=== PATIENT | female | born 1980 | race Caucasian/White ===

== ENCOUNTER 2018-02-14 09:36 | Emergency (ER) | payer BC ==
[2018-02-14 09:50] VITALS: BP 135/82
--- NOTE | 2018-02-14 09:57 | ER Document Report ---
ED Medical Screen (RME) - General Chief Complaint: Abdominal Pain Stated Complaint: ABDOMINAL PAIN Time Seen by Provider: 02/14/18 09:52 Mode of Arrival: Ambulatory Information source: Patient TRAVEL OUTSIDE OF THE [place] IN LAST 30 DAYS: No - HPI Patient complains to provider of: abd pain Onset: Yesterday - pt with onset of LLQ abd. pain starting yesterday and continuing into today. - Related Data Allergies/Adverse Reactions: azithromycin [From Zithromax] Allergy (Verified 02/14/18 09:37) Penicillins Allergy (Verified 02/14/18 09:37) Sulfa (Sulfonamide Antibiotics) Allergy (Verified 02/14/18 09:37) Past Medical History - Social History Chew tobacco use (# tins/day): No Frequency of alcohol use: None Drug Abuse: None Renal/ Medical History: Denies: Hx Peritoneal Dialysis Physical Exam - Vital signs Vitals: Temp Pulse Resp BP Pulse Ox 97.9 F 108 H 18 135/82 H 97 02/14/18 09:48 02/14/18 09:48 02/14/18 09:48 02/14/18 09:48 02/14/18 09:48 Course - Vital Signs Vital signs: Temp Pulse Resp BP Pulse Ox 97.9 F 108 H 18 135/82 H 97 02/14/18 09:48 02/14/18 09:48 02/14/18 09:48 02/14/18 09:48 02/14/18 09:48 Doctor's Discharge - Discharge Referrals: SANTANA BECKHAM DO [Primary Care Provider] - Follow up as needed
[2018-02-14 10:41] LABS: ABSOLUTE BASOPHILS # (AUTO) 0.1 10^3/uL (0.0-0.2); ABSOLUTE EOSINOPHILS # (AUTO) 0.2 10^3/uL (0.0-0.6); ABSOLUTE LYMPHOCYTES (AUTO) 1.9 10^3/uL (0.5-4.7); ABSOLUTE MONOCYTES (AUTO) 0.7 10^3/uL (0.1-1.4); ABSOLUTE NEUT (AUTO) 6.2 10^3/uL (1.7-8.2); BASOPHILS % (AUTO) 0.7 % (0-2); HEMATOCRIT 41.3 % (36.0-47.0); HEMOGLOBIN 14.1 g/dL (12.0-15.5); LYMPHOCYTES % (AUTO) 20.5 % (13-45); MEAN CORPUSCULAR HEMOGLOBIN 29.7 pg (27.0-33.4); MEAN CORPUSCULAR HGB CONC 34.2 g/dL (32.0-36.0); MEAN CORPUSCULAR VOLUME 87 fl (80-97); PLATELET COUNT 279 10^3/uL (150-450); RED BLOOD COUNT 4.75 10^6/uL (3.72-5.28); RED CELL DISTRIBUTION WIDTH 13.8 % (11.5-14.0); SEGMENTED NEUTROPHILS % (AUTO) 68.8 % (42-78); TOTAL CELLS COUNTED % (AUTO) 100 %
--- NOTE | 2018-02-14 10:55 | ER Document Report ---
ED GI/ - General Chief Complaint: Abdominal Pain Stated Complaint: ABDOMINAL PAIN Time Seen by Provider: 02/14/18 09:52 Mode of Arrival: Ambulatory Information source: Patient Notes: Patient presents complaining of left lower pelvic pain just started yesterday. Patient denies any fever, nausea vomiting or diarrhea. Patient denies any urinary symptoms. Patient denies any concerns about sexually transmitted infection TRAVEL OUTSIDE OF THE [place] IN LAST 30 DAYS: No - HPI Patient complains to provider of: Pelvic pain Onset: Yesterday Timing/Duration: Persistent Pain Level: 1 Location: Pelvis Vaginal bleeding (Compared to normal period): None Sexual history: Active Associated symptoms: denies: Diarrhea, Dysuria, Fever, Nausea, Urinary hesitancy , Urinary frequency, Urinary retention, Urinary urgency, Vaginal discharge Exacerbated by: Movement Relieved by: Denies Similar symptoms previously: No Recently seen / treated by doctor: Yes - Related Data Allergies/Adverse Reactions: azithromycin [From Zithromax] Allergy (Verified 02/14/18 09:57) Penicillins Allergy (Verified 02/14/18 09:57) Sulfa (Sulfonamide Antibiotics) Allergy (Verified 02/14/18 09:57) Past Medical History - General Information source: Patient - Social History Smoking Status: Never Smoker Chew tobacco use (# tins/day): No Frequency of alcohol use: None Drug Abuse: None Occupation: [employer] Lives with: Family Family History: Reviewed & Not Pertinent Patient has suicidal ideation: No Patient has homicidal ideation: No Endocrine Medical History: Reports: Hx Hypothyroidism Renal/ Medical History: Denies: Hx Peritoneal Dialysis Psychiatric Medical History: Reports: Hx Anxiety Past Surgical History: Reports: Hx Cholecystectomy Review of Systems - Review of Systems Constitutional: No symptoms reported. denies: Fever, Recent illness EENT: No symptoms reported Cardiovascular: No symptoms reported. denies: Chest pain Respiratory: No symptoms reported. denies: Cough, Short of breath Gastrointestinal: Abdominal pain. denies: Diarrhea, Nausea, Vomiting Genitourinary: No symptoms reported. denies: Dysuria, Flank pain Female Genitourinary: No symptoms reported. denies: Vaginal discharge, Vaginal bleeding Musculoskeletal: Back pain Skin: No symptoms reported Hematologic/Lymphatic: No symptoms reported Neurological/Psychological: No symptoms reported Physical Exam - Vital signs Vitals: Temp Pulse Resp BP Pulse Ox 97.9 F 108 H 18 135/82 H 97 02/14/18 09:48 02/14/18 09:48 02/14/18 09:48 02/14/18 09:48 02/14/18 09:48 - General General appearance: Appears well, Alert In distress: None - HEENT Head: Normocephalic, Atraumatic Eyes: Normal Conjunctiva: Normal Ears: Normal Nasal: Normal Mouth/Lips: Normal Neck: Normal, Supple. No: Lymphadenopathy - Respiratory Respiratory status: No respiratory distress Chest status: Nontender Breath sounds: Normal. No: Rales, Rhonchi, Stridor, Wheezing Chest palpation: Normal - Cardiovascular Rhythm: Regular Heart sounds: S1 appreciated, S2 appreciated Murmur: No - Abdominal Inspection: Wounds Distension: No distension Bowel sounds: Normal Tenderness: Tender - LLQ pain Organomegaly: No organomegaly - Genitourinary External exam: Normal Speculum exam: Normal Vaginal bleeding: None Bimanuel exam: Adnexal tenderness - left - Back Back: Tender - Left lower lumbar paraspinal tenderness. No: CVA tenderness, Vertebra tenderness - Extremities General upper extremity: Normal inspection, Nontender, Normal ROM General lower extremity: Normal inspection, Nontender, Normal ROM - Neurological Neuro grossly intact: Yes Cognition: Normal Jose Coma Scale Eye Opening: Spontaneous [place] Coma Scale Verbal: Oriented Jose Coma Scale Motor: Obeys Commands Jose Coma Scale Total: 15 - Psychological Associated symptoms: Normal affect, Normal mood - Skin Skin Temperature: Warm Skin Moisture: Dry Skin Color: Normal Course - Re-evaluation Re-evalutation: 02/14/18 13:34 Patient continues with mild left lower pelvic tenderness. No fever, no leukocytosis. Normal urinalysis. Patient presents with abdominal pain without signs of peritonitis or other life-threatening or serious etiology. Patient appears stable for discharge and has been instructed to return immediately if the symptoms worsen in any way, or in 8-12 hours if not improved for reevaluation. The patient has been instructed to return if the symptoms worsen or change in any way. - Vital Signs Vital signs: Temp Pulse Resp BP Pulse Ox 97.9 F 108 H 18 135/82 H 97 02/14/18 09:48 02/14/18 09:48 02/14/18 09:48 02/14/18 09:48 02/14/18 09:48 - Laboratory Result Diagrams: 02/14/18 09:48 02/14/18 09:48 Laboratory results interpreted by me: Labs- Entire Visit 02/14/18 02/14/18 02/14/18 09:48 09:48 09:48 WBC 9.0 RBC 4.75 Hgb 14.1 Hct 41.3 MCV 87 MCH 29.7 MCHC 34.2 RDW 13.8 Plt Count 279 Seg Neutrophils % 68.8 Lymphocytes % 20.5 Monocytes % 8.0 Eosinophils % 2.0 Basophils % 0.7 Absolute Neutrophils 6.2 Absolute Lymphocytes 1.9 Absolute Monocytes 0.7 Absolute Eosinophils 0.2 Absolute Basophils 0.1 Sodium 143.4 Potassium 4.5 Chloride 106 Carbon Dioxide 25 Anion Gap 12 BUN 11 Creatinine 0.69 Est GFR ( Amer) > 60 Est GFR (Non-Af Amer) > 60 Glucose 89 Calcium 9.9 Total Bilirubin 0.4 Direct Bilirubin 0.2 Neonat Total Bilirubin Not Reportable Neonat Direct Bilirubin Not Reportable Neonat Indirect Bili Not Reportable AST 14 ALT 21 Alkaline Phosphatase 70 Total Protein 7.3 Albumin 4.4 Lipase 84.4 Urine Color STRAW Urine Appearance CLEAR Urine pH 6.0 Ur Specific [place] 1.004 Urine Protein NEGATIVE Urine Glucose (UA) NEGATIVE Urine Ketones NEGATIVE Urine Blood NEGATIVE Urine Nitrite NEGATIVE Urine Bilirubin NEGATIVE Urine Urobilinogen NEGATIVE Ur Leukocyte Esterase NEGATIVE Urine WBC (Auto) 0 Urine Bacteria (Auto) TRACE Squamous Epi Cells Auto <1 Urine Mucus (Auto) RARE Urine Ascorbic Acid NEGATIVE Urine HCG, Qual NEGATIVE Trichomonas (Wet Prep) Vaginal WBC Vaginal Yeast Chlamydia DNA (PCR) N.gonorrhoeae DNA (PCR) 02/14/18 02/14/18 11:38 11:38 WBC RBC Hgb Hct MCV MCH MCHC RDW Plt Count Seg Neutrophils % Lymphocytes % Monocytes % Eosinophils % Basophils % Absolute Neutrophils Absolute Lymphocytes Absolute Monocytes Absolute Eosinophils Absolute Basophils Sodium Potassium Chloride Carbon Dioxide Anion Gap BUN Creatinine Est GFR ( Amer) Est GFR (Non-Af Amer) Glucose Calcium Total Bilirubin Direct Bilirubin Neonat Total Bilirubin Neonat Direct Bilirubin Neonat Indirect Bili AST ALT Alkaline Phosphatase Total Protein Albumin Lipase Urine Color Urine Appearance Urine pH Ur Specific [place] Urine Protein Urine Glucose (UA) Urine Ketones Urine Blood Urine Nitrite Urine Bilirubin Urine Urobilinogen Ur Leukocyte Esterase Urine WBC (Auto) Urine Bacteria (Auto) Squamous Epi Cells Auto Urine Mucus (Auto) Urine Ascorbic Acid Urine HCG, Qual Trichomonas (Wet Prep) NO TRICHOMONAS SEEN Vaginal WBC RARE WBCS SEEN Vaginal Yeast NO YEAST SEEN Chlamydia DNA (PCR) NOT DETECTED N.gonorrhoeae DNA (PCR) NOT DETECTED - Diagnostic Test Radiology reviewed: Image reviewed, Reports reviewed Discharge - Discharge Clinical Impression: Abdominal pain Qualifiers: Abdominal location: left lower quadrant Qualified Code(s): R10.32 - Left lower quadrant pain Condition: Stable Disposition: HOME, SELF-CARE Instructions: Abdominal Pain ([facility]), Antispasmodics ([facility]) Additional Instructions: Return immediately for any new or worsening symptoms Followup with your primary care provider, call tomorrow to make a followup appointment Prescriptions: Dicyclomine HCl [Bentyl 20 mg Tablet] 20 mg PO QID PRN #12 tablet PRN Reason: Naproxen [Naprosyn 250 Nmg Tablet] 1 tab PO BID #14 tablet Referrals: SANTANA BECKHAM DO [Primary Care Provider] - 02/16/18
[2018-02-14 10:57] LABS: APPEARANCE,URINE CLEAR; BILIRUBIN,URINE NEGATIVE (NEGATIVE); COLOR,URINE STRAW; GLUCOSE, URINE NEGATIVE (NEGATIVE); KETONES,URINE NEGATIVE (NEGATIVE); LEUKOCYTE ESTERASE,URINE NEGATIVE (NEGATIVE); NITRITE,URINE NEGATIVE (NEGATIVE); PROTEIN,URINE NEGATIVE (NEGATIVE); URINE SPECIFIC GRAVITY 1.004; UROBILINOGEN,URINE NEGATIVE mg/dL (<2.0)
[2018-02-14 10:58] LABS: ALANINE AMINOTRANSFERASE 21 U/L (9-52); ALBUMIN 4.4 g/dL (3.5-5.0); ALKALINE PHOSPHATASE 70 U/L (38-126); ANION GAP 12 (5-19); ASPARTATE AMINO TRANSFERASE 14 U/L (14-36); BILIRUBIN,DIRECT 0.2 mg/dL (0.0-0.4); BILIRUBIN,TOTAL 0.4 mg/dL (0.2-1.3); BLOOD UREA NITROGEN 11 mg/dL (7-20); CALCIUM 9.9 mg/dL (8.4-10.2); CARBON DIOXIDE 25 mmol/L (22-30); CHLORIDE 106 mmol/L (98-107); GLUCOSE 89 mg/dL (75-110); LIPASE 84.4 U/L (23-300); POTASSIUM 4.5 mmol/L (3.6-5.0); SODIUM 143.4 mmol/L (137-145); TOTAL PROTEIN 7.3 g/dL (6.3-8.2)
--- NOTE | 2018-02-14 11:46 | RADIOLOGY REPORT (SQ) ---
EXAM DESCRIPTION: ACUTE ABDOMEN SERIES COMPLETED DATE/TIME: 02/14/2018 11:31 am REASON FOR STUDY: abd pain COMPARISON: None. NUMBER OF VIEWS: Three views. TECHNIQUE: Frontal chest, supine abdomen and upright/decubitus abdomen radiographic images acquired. LIMITATIONS: None. FINDINGS: CHEST: Lungs clear of infiltrates. FREE AIR: None. No abnormal gas collections. BOWEL GAS PATTERN: Nonobstructive pattern. No dilated loops or air fluid levels. CALCIFICATIONS: No suspicious calcifications. HARDWARE: Clips right upper quadrant. SOFT TISSUES: No gross mass or suggestion of organomegaly. BONES: No acute fracture. No worrisome bone lesions. OTHER: No other significant finding. IMPRESSION: NO RADIOGRAPHIC EVIDENCE FOR ACUTE ABDOMINAL DISEASE. TECHNICAL DOCUMENTATION: JOB ID: [id number] [employer]- All Rights Reserved Reading location - IP/workstation name: [email or web address]
[2018-02-14 12:03] LABS: T.VAGINALIS (WET MOUNT) NO TRICHOMONAS SEEN; WBCS (WET MOUNT) RARE WBCS SEEN; YEAST (WET MOUNT) NO YEAST SEEN
--- NOTE | 2018-02-14 13:13 | RADIOLOGY REPORT (SQ) ---
EXAM DESCRIPTION: U/S NON OB PEL TV W/DOPPLER COMPLETED DATE/TIME: 02/14/2018 1:02 pm REASON FOR STUDY: left adnexal tenderness COMPARISON: None. TECHNIQUE: Dynamic and static grayscale images acquired of the pelvis via transvaginal approach and recorded on PACS. Additional selected color Doppler and spectral images recorded. LIMITATIONS: None. FINDINGS: UTERUS: Contour normal. No mass. ENDOMETRIAL STRIPE: No focal or generalized thickening. No masses. CERVIX: No nabothian cysts. RIGHT OVARY AND DOPPLER: Ovary not visualized. LEFT OVARY AND DOPPLER: Ovary not visualized. FREE FLUID: None noted. OTHER: No other significant finding. MEASUREMENTS: UTERUS: 9.9 x 4.7 x 6.1 cm ENDOMETRIAL STRIPE: 17 mm RIGHT OVARY: Not visualized. LEFT OVARY: Not visualized. IMPRESSION: Nonvisualization of the ovaries. No adnexal mass. TECHNICAL DOCUMENTATION: JOB ID: [id number] [employer]- All Rights Reserved Rev-11/21 Reading location - IP/workstation name: [email or web address]
[2018-02-14 13:27] LABS: CHLAM PCR NOT DETECTED (NOT DETECT); GON PCR NOT DETECTED (NOT DETECT)
[2018-02-14] MEDS ORDERED: DICYCLOMINE HCL 20 MG TABLET PO ONE (13:34)
== END 2018-02-14 14:23 | disposition home or self-care (01) ==
LOC: ER 09:36
DX: R10.32 Left lower quadrant pain (principal); R10.2 Pelvic and perineal pain; M54.9 Dorsalgia, unspecified; Z88.1 Allergy status to other antibiotic agents; Z88.0 Allergy status to penicillin; Z88.2 Allergy status to sulfonamides
CPT/HCPCS: 36415; 74022; 76830; 80053; 81001; 81025; 83690; 85025; 87210; 87491; 87591; 93976; 99284

== ENCOUNTER 2018-06-10 09:29 | Emergency (ER) | payer BC ==
[2018-06-10] MEDS ORDERED: NORMAL SALINE 1000 ML 1,000 ML IV ONE (09:55)
--- NOTE | 2018-06-10 09:57 | ER Document Report ---
ED Medical Screen (RME) - General Chief Complaint: Vaginal Bleeding Stated Complaint: DIZZY, WEAK, VAGINAL BLEEDING Time Seen by Provider: 06/10/18 09:53 Notes: 37 years old female presents today with irregular menstrual cycle for the last 8 weeks. On and off bleeding recently passing clots. And feeling weak and tired. With a history of hypothyroidism and Graves' disease. TRAVEL OUTSIDE OF THE [place] IN LAST 30 DAYS: No - Related Data Allergies/Adverse Reactions: azithromycin [From Zithromax] Allergy (Verified 06/10/18 09:31) Penicillins Allergy (Verified 06/10/18 09:31) Sulfa (Sulfonamide Antibiotics) Allergy (Verified 06/10/18 09:31) Past Medical History - Social History Frequency of alcohol use: None Drug Abuse: None Pulmonary Medical History: Reports: Hx Asthma Endocrine Medical History: Reports: Hx Hypothyroidism Renal/ Medical History: Denies: Hx Peritoneal Dialysis Psychiatric Medical History: Reports: Hx Anxiety Past Surgical History: Reports: Hx Cholecystectomy Physical Exam - Vital signs Vitals: Temp Pulse Resp BP Pulse Ox 98.5 F 101 H 16 131/77 H 99 06/10/18 09:35 06/10/18 09:35 06/10/18 09:35 06/10/18 09:35 06/10/18 09:35 Course - Vital Signs Vital signs: Temp Pulse Resp BP Pulse Ox 98.5 F 101 H 16 131/77 H 99 06/10/18 09:35 06/10/18 09:35 06/10/18 09:35 06/10/18 09:35 06/10/18 09:35 Doctor's Discharge - Discharge Referrals: SANTANA BECKHAM DO [Primary Care Provider] - Follow up as needed
[2018-06-10 10:33] LABS: ABSOLUTE BASOPHILS # (AUTO) 0.1 10^3/uL (0.0-0.2); ABSOLUTE EOSINOPHILS # (AUTO) 0.2 10^3/uL (0.0-0.6); ABSOLUTE LYMPHOCYTES (AUTO) 1.9 10^3/uL (0.5-4.7); ABSOLUTE MONOCYTES (AUTO) 0.7 10^3/uL (0.1-1.4); APPEARANCE,URINE CLEAR; BASOPHILS % (AUTO) 0.7 % (0-2); BILIRUBIN,URINE NEGATIVE (NEGATIVE); COLOR,URINE STRAW; GLUCOSE, URINE NEGATIVE (NEGATIVE); HEMATOCRIT 41.3 % (36.0-47.0); HEMOGLOBIN 14.2 g/dL (12.0-15.5); KETONES,URINE NEGATIVE (NEGATIVE); LEUKOCYTE ESTERASE,URINE NEGATIVE (NEGATIVE); LYMPHOCYTES % (AUTO) 19.7 % (13-45); MEAN CORPUSCULAR HGB CONC 34.3 g/dL (32.0-36.0); MEAN CORPUSCULAR VOLUME 87 fl (80-97); MONOCYTES % (AUTO) 6.6 % (3-13); NITRITE,URINE NEGATIVE (NEGATIVE); PLATELET COUNT 284 10^3/uL (150-450); PROTEIN,URINE NEGATIVE (NEGATIVE); RED BLOOD COUNT 4.73 10^6/uL (3.72-5.28); RED CELL DISTRIBUTION WIDTH 13.7 % (11.5-14.0); TOTAL CELLS COUNTED % (AUTO) 100 %; URINE SPECIFIC GRAVITY 1.003; UROBILINOGEN,URINE NEGATIVE mg/dL (<2.0); WHITE BLOOD COUNT 9.9 10^3/uL (4.0-10.5)
[2018-06-10 13:09] LABS: ALANINE AMINOTRANSFERASE 17 U/L (9-52); ALBUMIN 4.2 g/dL (3.5-5.0); ALKALINE PHOSPHATASE 93 U/L (38-126); ANION GAP 12 (5-19); ASPARTATE AMINO TRANSFERASE 15 U/L (14-36); BILIRUBIN,DIRECT 0.2 mg/dL (0.0-0.4); BILIRUBIN,TOTAL 0.3 mg/dL (0.2-1.3); BLOOD UREA NITROGEN 11 mg/dL (7-20); CALCIUM 9.5 mg/dL (8.4-10.2); CARBON DIOXIDE 26 mmol/L (22-30); CHLORIDE 105 mmol/L (98-107); GLUCOSE 115 mg/dL (75-110); POTASSIUM 4.2 mmol/L (3.6-5.0); SODIUM 142.7 mmol/L (137-145); TOTAL PROTEIN 7.1 g/dL (6.3-8.2)
--- NOTE | 2018-06-10 13:48 | ER Document Report ---
ED General - General Chief Complaint: Vaginal Bleeding Stated Complaint: DIZZY, WEAK, VAGINAL BLEEDING Time Seen by Provider: 06/10/18 09:53 Notes: 37 old female presents to the emergency frankly some generalized weakness. She has been having some heavy vaginal bleeding. She did have regular periods up until on April and she had irregular periods she has not seen her [facility] but has an appointment in a month. She is not on any control. Is not . She complains of a little abdominal cramping but nothing significant. Denies hematuria or dysuria states she sometimes feels lightheaded but not significant a dizzy no headaches no blurred vision no numbness or tingling TRAVEL OUTSIDE OF THE [place] IN LAST 30 DAYS: No - Related Data Allergies/Adverse Reactions: azithromycin [From Zithromax] Allergy (Verified 06/10/18 09:31) Penicillins Allergy (Verified 06/10/18 09:31) Sulfa (Sulfonamide Antibiotics) Allergy (Verified 06/10/18 09:31) Past Medical History - Social History Smoking Status: Never Smoker Frequency of alcohol use: None Drug Abuse: None Family History: Reviewed & Not Pertinent Patient has suicidal ideation: No Patient has homicidal ideation: No Pulmonary Medical History: Reports: Hx Asthma Endocrine Medical History: Reports: Hx Hypothyroidism Renal/ Medical History: Denies: Hx Peritoneal Dialysis Psychiatric Medical History: Reports: Hx Anxiety Past Surgical History: Reports: Hx Cholecystectomy Review of Systems - Review of Systems Constitutional: Fever. denies: Chills Cardiovascular: denies: Chest pain, Dyspnea Respiratory: denies: Short of breath Gastrointestinal: Abdominal pain, Nausea. denies: Vomiting Genitourinary: Dysuria, Discharge, Flank pain, Urgency Female Genitourinary: Vaginal bleeding -: Yes All other systems reviewed and negative Physical Exam - Vital signs Vitals: Temp Pulse Resp BP Pulse Ox 98.5 F 101 H 16 131/77 H 99 06/10/18 09:35 06/10/18 09:35 06/10/18 09:35 06/10/18 09:35 06/10/18 09:35 - Notes Notes: GENERAL_APPEARANCE: well_nourished, alert, cooperative, no_acute_distress, no_ obvious_discomfort. VITALS: reviewed, see vital signs table. HEAD: no_swelling\tenderness on the head. EYES: PERRL, EOMI, conjunctiva_clear. NOSE: no_nasal_discharge. MOUTH: (-)decreased moisture. THROAT: no_tonsilar_inflammation, no_airway_obstruction. no_lymphadenopathy NECK: supple, no_neck_tenderness, (-)thyromegaly. BACK: no_back_tenderness. CHEST_WALL: no_chest_tenderness. LUNGS: no_wheezing, no_rales, no_rhonchi, (-)accessory muscle use, good air exchange bilateral. HEART: normal_rate, normal_rhythm, normal_S1, normal_S2, (-)S3, (-)S4, no_ murmur, no_rub. ABDOMEN: normal_BS, soft, supra pubic_abd_tenderness, (-)guarding, (-)rebound, no_organomegaly, no_abd_masses. EXTREMITIES: good pulses in all_extremities, no_swelling\tenderness in the extremities, no_edema. SKIN: warm, dry, good_color, no_rash. MENTAL_STATUS: speech_clear, oriented_X_3, normal_affect, responds_ appropriately to questions. NEURO: Neg Motor or Sensory Deficits on exam, CN 2-12 intact, DTR 2+ symmetric x 4, No cerbellar signs Course - Re-evaluation Re-evalutation: 06/10/18 13:48 06/10/18 14:20 Patient arrives concerned she may be anemic. Her hemoglobin is 14. Her bleeding is light. We got an ultrasound which shows a left ovarian cyst otherwise no sniffing abnormalities. The patient will be discharged home she is not nothing to suggest ectopic . She has been having irregular periods since April and this is best cared for by her private [facility] physician. 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
[2018-06-10] MEDS ORDERED: DOXYCYCLINE HYCLATE 100 MG TABLET PO ONE (13:49)
[2018-06-10] MEDS ORDERED: CEFTRIAXONE 1 GM/D5W RTU 1 GM/50 ML RTUPB IV ONE (13:49)
[2018-06-10] MEDS ORDERED: METRONIDAZOLE 500 MG TABLET PO ONE (13:50)
--- NOTE | 2018-06-10 14:17 | RADIOLOGY REPORT (SQ) ---
EXAM DESCRIPTION: U/S NON-OB PELVIS TV W/O DOP COMPLETED DATE/TIME: 06/10/2018 2:04 pm REASON FOR STUDY: A irregular menstrual cycle , continuous menses for 2 months COMPARISON: 02/14/2018 TECHNIQUE: Dynamic and static grayscale images acquired of the pelvis via transvaginal approach and recorded on PACS. Additional selected color Doppler and spectral images recorded. LIMITATIONS: None. FINDINGS: UTERUS: Contour normal. No mass. Uterus is 9 x 5 x 5 cm in size ENDOMETRIAL STRIPE: No focal or generalized thickening. No masses. Endometrial stripe 11 mm in thick ness. CERVIX: No nabothian cysts. RIGHT OVARY AND DOPPLER: Normal size, 2.8 x 2 x 1.6 cm. No worrisome masses. Normal arterial vascular flow without evidence for torsion. LEFT OVARY AND DOPPLER: Left ovary is 4.7 x 3.9 x 3.5 cm in size with a 4.6 x 3.1 x 2.7 cm septated c yst present. No worrisome masses. Normal arterial vascular flow without evidence for torsion. FREE FLUID: None noted. OTHER: No other significant finding. IMPRESSION: Left ovary 4.6 x 3.1 cm septated cyst. Otherwise unremarkable study TECHNICAL DOCUMENTATION: JOB ID: [id number] [employer]- All Rights Reserved Rev-11/21 Reading location - IP/workstation name: [email or web address]
[2018-06-10 15:19] VITALS: BP 127/83
== END 2018-06-10 15:18 | disposition home or self-care (01) ==
LOC: ER 09:29
DX: N93.8 Other specified abnormal uterine and vaginal bleeding (principal); N83.292 Other ovarian cyst, left side; R42 Dizziness and giddiness; R53.1 Weakness; R11.0 Nausea; R30.0 Dysuria; R39.15 Urgency of urination; J45.909 Unspecified asthma, uncomplicated; Z88.1 Allergy status to other antibiotic agents; Z88.0 Allergy status to penicillin; Z88.2 Allergy status to sulfonamides
CPT/HCPCS: 99284; 96360; 36415; 85025; 81025; 80053; 81001; 76830; J7030

== ENCOUNTER 2019-08-07 13:16 | Emergency (ER) | payer BC ==
--- NOTE | 2019-08-07 14:02 | ER Document Report ---
ED Medical Screen (RME) - General Chief Complaint: Chest Pain Stated Complaint: CHEST PAIN Time Seen by Provider: 08/07/19 13:53 Primary Care Provider: SANTANA BECKHAM DO [Primary Care Provider] - Follow up as needed Mode of Arrival: Ambulatory Information source: Patient Notes: This 39-year-old female with history of hypothyroidism presents to the emergency department with complaints of left-sided chest pain that started a couple hours ago. Patient reports she was laughing very hard when her chest started hurting. She reports before that happened she had some diarrhea became nauseated. Denies history of cardiac disease. Reports family history of cardiac disease when they were in their 60s. Denies recent trip. Denies control. Denies smoking. Denies fever vomiting diarrhea. Denies cocaine or IV drug use. Reports pain with movement cough. I have greeted and performed a rapid initial assessment of this patient. A comprehensive ED assessment and evaluation of the patient, analysis of test results and completion of the medical decision making process will be conducted by additional ED providers. TRAVEL OUTSIDE OF THE [place] IN LAST 30 DAYS: No - Related Data Allergies/Adverse Reactions: azithromycin [From Zithromax] Allergy (Verified 08/07/19 13:46) Penicillins Allergy (Verified 08/07/19 13:46) Sulfa (Sulfonamide Antibiotics) Allergy (Verified 08/07/19 13:46) Home Medications: synthroid 50. flonase. zyrtec 10. zoloft 100. clonezepam 0.5. singulair Past Medical History - Social History Chew tobacco use (# tins/day): No Frequency of alcohol use: None Drug Abuse: None Pulmonary Medical History: Reports: Hx Asthma Endocrine Medical History: Reports: Hx Hypothyroidism Renal/ Medical History: Denies: Hx Peritoneal Dialysis Psychiatric Medical History: Reports: Hx Anxiety Past Surgical History: Reports: Hx Cholecystectomy Physical Exam - Vital signs Vitals: Temp Pulse Resp BP Pulse Ox 97.7 F 96 16 150/96 H 99 08/07/19 13:28 08/07/19 13:28 08/07/19 13:28 08/07/19 13:28 08/07/19 13:28 Course - Vital Signs Vital signs: Temp Pulse Resp BP Pulse Ox 97.7 F 96 16 150/96 H 99 08/07/19 13:28 08/07/19 13:28 08/07/19 13:28 08/07/19 13:28 08/07/19 13:28 Doctor's Discharge - Discharge Referrals: SANTANA BECKHAM, [Primary Care Provider] - Follow up as needed
[2019-08-07 14:51] LABS: ABSOLUTE BASOPHILS # (AUTO) 0.1 10^3/uL (0.0-0.2); ABSOLUTE EOSINOPHILS # (AUTO) 0.3 10^3/uL (0.0-0.6); ABSOLUTE LYMPHOCYTES (AUTO) 1.9 10^3/uL (0.5-4.7); ABSOLUTE MONOCYTES (AUTO) 0.7 10^3/uL (0.1-1.4); ABSOLUTE NEUT (AUTO) 6.9 10^3/uL (1.7-8.2); BASOPHILS % (AUTO) 1.2 % (0-2); EOSINOPHILS % (AUTO) 2.5 % (0-6); HEMATOCRIT 42.2 % (36.0-47.0); HEMOGLOBIN 14.3 g/dL (12.0-15.5); LYMPHOCYTES % (AUTO) 18.9 % (13-45); MEAN CORPUSCULAR HEMOGLOBIN 29.4 pg (27.0-33.4); MEAN CORPUSCULAR HGB CONC 33.9 g/dL (32.0-36.0); MEAN CORPUSCULAR VOLUME 87 fl (80-97); MONOCYTES % (AUTO) 7.2 % (3-13); PLATELET COUNT 292 10^3/uL (150-450); RED BLOOD COUNT 4.86 10^6/uL (3.72-5.28); RED CELL DISTRIBUTION WIDTH 14.2 % (11.5-14.0); SEGMENTED NEUTROPHILS % (AUTO) 70.2 % (42-78); TOTAL CELLS COUNTED % (AUTO) 100 %; WHITE BLOOD COUNT 9.9 10^3/uL (4.0-10.5)
[2019-08-07 14:52] LABS: APPEARANCE,URINE CLEAR; BILIRUBIN,URINE NEGATIVE (NEGATIVE); COLOR,URINE STRAW; GLUCOSE, URINE NEGATIVE (NEGATIVE); KETONES,URINE NEGATIVE (NEGATIVE); LEUKOCYTE ESTERASE,URINE SMALL (NEGATIVE); NITRITE,URINE NEGATIVE (NEGATIVE); PROTEIN,URINE NEGATIVE (NEGATIVE); URINE SPECIFIC GRAVITY 1.004; UROBILINOGEN,URINE NEGATIVE mg/dL (<2.0)
--- NOTE | 2019-08-07 14:56 | RADIOLOGY REPORT (SQ) ---
EXAM DESCRIPTION: CHEST 2 VIEWS COMPLETED DATE/TIME: 08/07/2019 2:41 pm REASON FOR STUDY: cp COMPARISON: None. EXAM PARAMETERS: NUMBER OF VIEWS: two views TECHNIQUE: Digital Frontal and Lateral radiographic views of the chest acquired. RADIATION DOSE: NA LIMITATIONS: none FINDINGS: LUNGS AND PLEURA: No opacities, masses or pneumothorax. No pleural effusion. MEDIASTINUM AND HILAR STRUCTURES: No masses or contour abnormalities. HEART AND VASCULAR STRUCTURES: Heart normal size. No evidence for failure. BONES: No acute findings. HARDWARE: None in the chest. OTHER: No other significant finding. IMPRESSION: NO ACUTE RADIOGRAPHIC FINDING IN THE CHEST. TECHNICAL DOCUMENTATION: JOB ID: [id number] [employer]- All Rights Reserved Reading location - IP/workstation name: [email or web address]
[2019-08-07 15:01] LABS: ALBUMIN 4.3 g/dL (3.5-5.0); ALKALINE PHOSPHATASE 88 U/L (38-126); ANION GAP 8 (5-19); ASPARTATE AMINO TRANSFERASE 19 U/L (14-36); BILIRUBIN,TOTAL 0.2 mg/dL (0.2-1.3); BLOOD UREA NITROGEN 8 mg/dL (7-20); CALCIUM 9.3 mg/dL (8.4-10.2); CARBON DIOXIDE 27 mmol/L (22-30); CHLORIDE 106 mmol/L (98-107); GLUCOSE 88 mg/dL (75-110); TOTAL PROTEIN 7.3 g/dL (6.3-8.2)
--- NOTE | 2019-08-07 17:32 | ER Document Report ---
ED General - General Chief Complaint: Chest Pain Stated Complaint: CHEST PAIN Time Seen by Provider: 08/07/19 13:53 Primary Care Provider: SANTANA BECKHAM DO [Primary Care Provider] - Follow up as needed Mode of Arrival: Ambulatory Information source: Patient Notes: This 39-year-old female with history of hypothyroidism presents to the emergency department with complaints of left-sided chest pain that started a couple hours ago. Patient reports she was laughing very hard when her chest started hurting. She reports before that happened she had some diarrhea became nauseated. Denies history of cardiac disease. Reports family history of cardiac disease when they were in their 60s. Denies recent trip. Denies control. Denies smoking. Denies fever vomiting diarrhea. Denies cocaine or IV drug use. Reports pain with movement cough. TRAVEL OUTSIDE OF THE [place] IN LAST 30 DAYS: No - Related Data Allergies/Adverse Reactions: azithromycin [From Zithromax] Allergy (Verified 08/07/19 13:46) Penicillins Allergy (Verified 08/07/19 13:46) Sulfa (Sulfonamide Antibiotics) Allergy (Verified 08/07/19 13:46) Home Medications: synthroid 50. flonase. zyrtec 10. zoloft 100. clonezepam 0.5. singulair Past Medical History - General Information source: Patient - Social History Smoking Status: Never Smoker Chew tobacco use (# tins/day): No Frequency of alcohol use: None Drug Abuse: None Family History: Reviewed & Not Pertinent Patient has suicidal ideation: No Patient has homicidal ideation: No Pulmonary Medical History: Reports: Hx Asthma Endocrine Medical History: Reports: Hx Hypothyroidism Renal/ Medical History: Denies: Hx Peritoneal Dialysis Psychiatric Medical History: Reports: Hx Anxiety Past Surgical History: Reports: Hx Cholecystectomy Review of Systems - Review of Systems Cardiovascular: See HPI -: Yes All other systems reviewed and negative Physical Exam - Vital signs Vitals: Temp Pulse Resp BP Pulse Ox 97.7 F 96 16 150/96 H 99 08/07/19 13:28 08/07/19 13:28 08/07/19 13:28 08/07/19 13:28 08/07/19 13:28 - Notes Notes: PHYSICAL EXAMINATION: GENERAL: Well-appearing, well-nourished and in no acute distress. HEAD: Atraumatic, normocephalic. EYES: Pupils equal round and reactive to light, extraocular movements intact, conjunctiva are normal. ENT: Nares patent, oropharynx clear without exudates. Moist mucous membranes. NECK: Normal range of motion, supple without lymphadenopathy LUNGS: Breath sounds clear to auscultation bilaterally and equal. No wheezes rales or rhonchi. HEART: Regular rate and rhythm without murmurs ABDOMEN: Soft, nontender, nondistended abdomen. No guarding, no rebound. No masses appreciated. Female : deferred Musculoskeletal: Normal range of motion, no pitting or edema. No cyanosis. Reproducible chest pain with palpation on the upper left chest wall NEUROLOGICAL: Cranial nerves grossly intact. Normal speech, normal gait. Normal sensory, motor exams PSYCH: Normal mood, normal affect. SKIN: Warm, Dry, normal turgor, no rashes or lesions noted. Course - Re-evaluation Re-evalutation: Patient's work-up today has been unremarkable. Her physical examination is reassuring. Her chest pain is reproducible with palpation. She has had 2- troponins, a normal chest x-ray and a negative d-dimer. Her EKG showed a sinus rhythm, normal axis, normal rate with no ST segment elevations or depressions. She is PERC negative. This is likely musculoskeletal pain due to as well as the fact that it is reproducible. Patient's TSH was elevated, she takes Synthroid, she will follow-up with her primary care provider regarding this. Strict ED return precautions discussed, patient verbalized understanding and agreement with same. - Vital Signs Vital signs: Temp Pulse Resp BP Pulse Ox 98 F 96 20 154/89 H 98 08/07/19 17:00 08/07/19 13:28 08/07/19 20:35 08/07/19 20:35 08/07/19 20:35 - Laboratory Result Diagrams: 08/07/19 14:29 08/07/19 14:29 Laboratory results interpreted by me: 08/07/19 08/07/19 08/07/19 14:29 14:29 14:29 RDW 14.2 H TSH 7.34 H Ur Leukocyte Esterase SMALL H Discharge - Discharge Clinical Impression: Elevated TSH, Chest wall pain, Muscle strain Condition: Stable Disposition: HOME, SELF-CARE Instructions: Chest Wall Pain ([facility]) Additional Instructions: Your work-up today was unremarkable other than your elevated TSH. Please follow closely with your primary care provider regarding this as your dose of levothyroxine may need to be increased. Please also discuss your chest pain with your primary care provider. Return to the emergency department with any new or worsening symptoms. Please take muscle relaxer as prescribed, take this with 600 mg of ibuprofen. Prescriptions: Methocarbamol [Robaxin 750 mg Tablet] 750 mg PO Q4 #30 tablet Methocarbamol [Robaxin 750 mg Tablet] 750 mg PO Q4 #30 tablet Referrals: SANTANA BECKHAM, [Primary Care Provider] - Follow up as needed
[2019-08-07] MEDS ORDERED: IBUPROFEN 600 MG TABLET PO ONE (20:11)
[2019-08-07] MEDS ORDERED: METHOCARBAMOL 750 MG TABLET PO ONE (20:11)
[2019-08-07 22:27] VITALS: BP 154/89
--- NOTE | 2019-08-07 23:48 | EKG REPORT ---
SEVERITY:- BORDERLINE ECG - SINUS TACHYCARDIA INFERIOR Q WAVES, PROBABLY NORMAL VARIATION BORDERLINE T ABNORMALITIES, ANTERIOR LEADS : Confirmed by: Tootie Patterson 07-Aug-2019 23:47:25
== END 2019-08-07 22:25 | disposition home or self-care (01) ==
LOC: ER 13:16
DX: S29.011A Strain of muscle and tendon of front wall of thorax, initial encounter (principal); R07.89 Other chest pain; R94.6 Abnormal results of thyroid function studies; R19.7 Diarrhea, unspecified; R11.0 Nausea; X58.XXXA Exposure to other specified factors, initial encounter; Z88.0 Allergy status to penicillin; Z88.1 Allergy status to other antibiotic agents; Z88.2 Allergy status to sulfonamides; Z79.899 Other long term (current) drug therapy; J45.909 Unspecified asthma, uncomplicated
CPT/HCPCS: 93005; 99285; 36415; 84443; 85025; 81025; 80053; 81001; 84484; 85379; 71046; 93010; J3490

== ENCOUNTER 2020-03-19 18:06 | Emergency (ER) | payer BC ==
[2020-03-19] MEDS ORDERED: ACETAMINOPHEN 325 MG TABLET PO ONE (18:32)
[2020-03-19] MEDS ORDERED: DIPH/PERTUSS(ACELL)/TETANUS VAC/PF 0.5 ML SYR (>=10YO) IM ONE ×2 (18:34→20:59)
--- NOTE | 2020-03-19 18:36 | ER Document Report ---
ED Medical Screen (RME) - General Chief Complaint: Laceration Stated Complaint: FINGER LACERATION Time Seen by Provider: 03/19/20 18:24 Primary Care Provider: SANTANA BECKHAM DO [Primary Care Provider] - Follow up as needed Notes: Patient is a 39-year-old female presents emergency department with a chief complaint of left third finger pain. Patient states that she went to go reach to grab a leaf blower that was broken at her house and she ended up cutting her finger. Patient is unsure if she is up-to-date on her immunizations. States that she thinks she may have last got her tetanus vaccine in 2010. Exam: Patient is able to flex her MIP joint. I have greeted and performed a rapid initial assessment of this patient. A comprehensive ED assessment and evaluation of the patient, analysis of test res ults and completion of medical decision making process will be conducted by an additional ED providers. TRAVEL OUTSIDE OF THE [place] IN LAST 30 DAYS: No - Related Data Allergies/Adverse Reactions: azithromycin [From Zithromax] Allergy (Verified 08/07/19 13:46) Penicillins Allergy (Verified 08/07/19 13:46) Sulfa (Sulfonamide Antibiotics) Allergy (Verified 08/07/19 13:46) Past Medical History - Social History Frequency of alcohol use: None Drug Abuse: None Pulmonary Medical History: Reports: Hx Asthma Endocrine Medical History: Reports: Hx Hypothyroidism Renal/ Medical History: Denies: Hx Peritoneal Dialysis Psychiatric Medical History: Reports: Hx Anxiety Past Surgical History: Reports: Hx Cholecystectomy Physical Exam - Vital signs Vitals: Temp Pulse Resp BP Pulse Ox 98.2 F 116 H 20 158/94 H 96 03/19/20 18:09 03/19/20 18:09 03/19/20 18:09 03/19/20 18:09 03/19/20 18:09 Course - Vital Signs Vital signs: Temp Pulse Resp BP Pulse Ox 98.2 F 116 H 20 158/94 H 96 03/19/20 18:09 03/19/20 18:09 03/19/20 18:09 03/19/20 18:09 03/19/20 18:09 Doctor's Discharge - Discharge Referrals: SANTANA BECKHAM DO [Primary Care Provider] - Follow up as needed
--- NOTE | 2020-03-19 19:17 | RADIOLOGY REPORT (SQ) ---
EXAM DESCRIPTION: FINGER LEFT IMAGES COMPLETED DATE/TIME: 03/19/2020 6:56 pm REASON FOR STUDY: finger laceration COMPARISON: None. NUMBER OF VIEWS: Three views. TECHNIQUE: AP, lateral, and oblique images acquired of the left fifth finger. LIMITATIONS: None. FINDINGS: MINERALIZATION: Normal. BONES: Persistent flexion deformity of the 5th digit distal interphalangeal joint without demonstrate d distal base dorsal plate avulsion injury. Ill-defined hyperdensities demonstrated adjacent to the volar base on the oblique image only may represent age-indeterminate avulsion injury, but are inconsi stent with the demonstrated malalignment. SOFT TISSUES: No soft tissue swelling. No foreign body. OTHER: No other significant finding. IMPRESSION: Flexion deformity of the 5th digit distal interphalangeal joint without associated dorsa l based avulsion fracture. Findings suggest distal extensor tendon injury. TECHNICAL DOCUMENTATION: JOB ID: [id number] 2010 [employer]- All Rights Reserved Reading location - IP/workstation name: [email or web address]
[2020-03-19 19:58] LABS: ABSOLUTE BASOPHILS # (AUTO) 0.1 10^3/uL (0.0-0.2); ABSOLUTE EOSINOPHILS # (AUTO) 0.2 10^3/uL (0.0-0.6); ABSOLUTE LYMPHOCYTES (AUTO) 2.1 10^3/uL (0.5-4.7); ABSOLUTE MONOCYTES (AUTO) 0.8 10^3/uL (0.1-1.4); ABSOLUTE NEUT (AUTO) 6.9 10^3/uL (1.7-8.2); BASOPHILS % (AUTO) 0.7 % (0-2); EOSINOPHILS % (AUTO) 1.7 % (0-6); HEMATOCRIT 38.6 % (36.0-47.0); HEMOGLOBIN 13.4 g/dL (12.0-15.5); MEAN CORPUSCULAR HEMOGLOBIN 29.8 pg (27.0-33.4); MEAN CORPUSCULAR HGB CONC 34.7 g/dL (32.0-36.0); MEAN CORPUSCULAR VOLUME 86 fl (80-97); MONOCYTES % (AUTO) 7.9 % (3-13); PLATELET COUNT 256 10^3/uL (150-450); RED CELL DISTRIBUTION WIDTH 14.4 % (11.5-14.0); SEGMENTED NEUTROPHILS % (AUTO) 68.7 % (42-78); TOTAL CELLS COUNTED % (AUTO) 100 %
[2020-03-19 20:28] LABS: ANION GAP 7 (5-19); BLOOD UREA NITROGEN 13 mg/dL (7-20); CALCIUM 9.7 mg/dL (8.4-10.2); CARBON DIOXIDE 29 mmol/L (22-30); CHLORIDE 102 mmol/L (98-107); GLUCOSE 100 mg/dL (75-110); POTASSIUM 4.2 mmol/L (3.6-5.0)
[2020-03-19] MEDS ORDERED: LIDOCAINE 1% INJ-PF (10 MG/ML) 30 ML SDV INJ ONE (21:37)
--- NOTE | 2020-03-19 21:43 | ER Document Report ---
ED Extremity Problem, Upper - General Chief Complaint: Laceration Stated Complaint: FINGER LACERATION Time Seen by Provider: 03/19/20 18:24 Primary Care Provider: SANTANA BECKHAM DO [Primary Care Provider] - Follow up as needed FRANCY GUERRIER MD [ACTIVE STAFF] - Follow up tomorrow (Call tomorrow for an outpatient follow-up appointment.) BRYNN YOU DO [ACTIVE STAFF] - Follow up tomorrow (Call tomorrow for an outpatient follow-up appointment.) Mode of Arrival: Ambulatory Information source: Patient Notes: 39-year-old female past medical history significant for Hawk's, thyroid disorder, allergies, asthma, anxiety presents to the emergency room with a laceration to her left middle finger palmar aspect. Patient states she was using a leaf leaf blower when she reached into the leaf blower to dislodge some leaves when she cut the end of her finger. Unknown last tetanus shot. Bleeding is controlled. Patient is right-handed. TRAVEL OUTSIDE OF THE [place] IN LAST 30 DAYS: No - Related Data Allergies/Adverse Reactions: azithromycin [From Zithromax] Allergy (Verified 08/07/19 13:46) Penicillins Allergy (Verified 08/07/19 13:46) Sulfa (Sulfonamide Antibiotics) Allergy (Verified 08/07/19 13:46) Past Medical History - General Information source: Patient - Social History Smoking Status: Never Smoker Frequency of alcohol use: None Drug Abuse: None Family History: Reviewed & Not Pertinent Pulmonary Medical History: Reports: Hx Asthma Endocrine Medical History: Reports: Hx Hypothyroidism Renal/ Medical History: Denies: Hx Peritoneal Dialysis Psychiatric Medical History: Reports: Hx Anxiety Past Surgical History: Reports: Hx Cholecystectomy Review of Systems - Review of Systems Constitutional: No symptoms reported EENT: No symptoms reported Cardiovascular: No symptoms reported Respiratory: No symptoms reported Musculoskeletal: Joint pain Skin: Other - laceration Neurological/Psychological: No symptoms reported -: Yes All other systems reviewed and negative Physical Exam - Vital signs Vitals: Temp Pulse Resp BP Pulse Ox 98.2 F 116 H 20 158/94 H 96 03/19/20 18:09 03/19/20 18:09 03/19/20 18:09 03/19/20 18:09 03/19/20 18:09 - General General appearance: Appears well, Alert In distress: Mild - Respiratory Respiratory status: No respiratory distress Chest status: Nontender Breath sounds: Normal Chest palpation: Normal - Cardiovascular Rhythm: Tachycardia Heart sounds: Normal auscultation Murmur: No - Extremities General lower extremity: Normal inspection Hand: Tender, Laceration - Left third digit palmar aspect with a 2 cm laceration near the DIP joint. There is also a 3 cm laceration noted to the medial aspect of the left third digit fingernail. Bleeding is controlled. There is ecchymosis noted on the palmar aspect of the left third finger. Painful range of motion with flexion and extension with decreased flexion noted. Tender to palpation. - Neurological Neuro grossly intact: Yes Cognition: Normal Orientation: AAOx4 Jose Coma Scale Eye Opening: Spontaneous [place] Coma Scale Verbal: Oriented [place] Coma Scale Motor: Obeys Commands Jose Coma Scale Total: 15 Speech: Normal Motor strength normal: LUE, RUE, LLE, RLE Sensory: Normal Notes: Positive left radial pulse. Capillary refill less than 3 seconds. Unable to fully flex distal aspect of the left middle finger - Skin Skin Temperature: Warm Skin Moisture: Dry Skin Color: Normal Skin irregularity: Laceration - Distal palmar aspect of the left middle finger with a 2 cm laceration with contused tissue. Unable to visualize tendon. There is also a 3 cm laceration noted along the medial aspect of the left middle fingernail. Nail is intact. Bleeding is controlled. Location of irregularity: Extremities Character of irregularity: Erythematous Irregularity with: Swelling, Tenderness Course - Re-evaluation Re-evalutation: 03/19/20 22:55 Wounds were cleaned and sutured as documented. Dressing and splinting applied by nursing staff as documented. Patient was given her first dose of clindamycin in the emergency room. She is aware that there is avulsion fracture at the DIP joint. She was counseled on proper wound care. Antibiotics as prescribed. Outpatient follow-up with orthopedics as discussed. Patient did request a local orthopedics as well as the on-call physician which she was provided with. Patient was given strict return to the emergency room guidelines. Return for any new or worsening symptoms. All questions were answered. Patient verbalized understanding and agrees with plan of care. 03/19/20 23:35 Spoke with on-call orthopedist Dr. Guerrier who recommended good washout, suturing, dressing, and splinting, discharge home on clindamycin as is the only antibiotic patient states that she can take without reactions. He agreed with the plan. We will follow-up patient outpatient in the office. Patient is stable for discharge. She is neurovascularly intact. - Vital Signs Vital signs: Temp Pulse Resp BP Pulse Ox 98.4 F 81 18 126/79 H 100 03/19/20 23:46 03/19/20 23:46 03/19/20 23:46 03/19/20 23:46 03/19/20 23:46 - Laboratory Result Diagrams: 03/19/20 19:42 03/19/20 19:42 Laboratory results interpreted by me: 03/19/20 19:42 RDW 14.4 H - Diagnostic Test Radiology reviewed: Reports reviewed - Consults Dr. Guerrier Time consulted: 23:34 Reason for consultation: 03/19/20 23:34 Reviewed x-ray results with patient along with exam. Recommend good washout, suturing, dressing, and splinting which was done as documented. He will follow- up patient in the office. Agrees with plan of care. Consulted provider: follow-up in office Procedures - Immobilization Left Finger 3rd digit Time completed: 22:51 Pre-Proc Neuro Vasc Exam: Normal Immobilizer type: Finger splint (Static) Performed by: RN Post-Proc Neuro Vasc Exam: Normal Alignment checked and good: Yes - Laceration/Wound Repair Left Finger 3rd digit Time completed: 22:43 Wound length (cm): 2 Wound's Depth, Shape: Linear, Contused tissue Laceration pre-procedure: Sterile PPE donned, Sterile drapes applied, Shur-Clens applied Anesthetic type: 1% Lidocaine Volume Anesthetic (mLs): 2 Wound explored: Clean, No foreign body removed Irrigated w/ Saline (mLs): 20 Wound Repaired With: Sutures Suture Size/Type: 4:0, Ethilon Number of Sutures: 5 - obvious fish and game warden tendon damage unable to visualize tendon. Layer Closure?: No Post-procedure wound care: Sterile dressing applied, Splint applied Post-procedure NV exam normal: Yes Complications: No - Additional Procedures laceration repair Time performed: 22:45 Notes: 03/19/20 22:45 laceration 3 cm along medial aspect of the nail bed. irrigated with 5 cc of normal saline 1 cc of 1% lidocaine. Wound explored. Nail bed intake sutured with 4-0 Ethilon along nail bed into nail. Neurovascularly intact. Discharge - Discharge Clinical Impression: Laceration of left middle finger with tendon involvement Laceration of left middle finger without foreign body without damage to nail Qualifiers: Encounter type: initial encounter Qualified Code(s): S61.213A - Laceration without foreign body of left middle finger without damage to nail, initial encounter Open avulsion fracture of distal phalanx of finger Qualifiers: Encounter type: initial encounter Qualified Code(s): S62.639B - Displaced fracture of distal phalanx of unspecified finger, initial encounter for open fracture Disposition: HOME, SELF-CARE Instructions: Laceration Care ([facility]), Prophylactic Antibiotic ([facility]), Tetanus Immunization Given ([facility]) Additional Instructions: Keep wound clean and dry. Wear splint until seen by orthopedics. Tylenol and/or Motrin as needed for pain. Antibiotics as prescribed. Return to the emergency room for any new or worsening symptoms. Prescriptions: Clindamycin HCl 300 mg PO QID 10 Days #40 capsule Forms: Return to Work Referrals: SANTANA BECKHAM DO [Primary Care Provider] - Follow up as needed FRANCY GUERRIER MD [ACTIVE STAFF] - Follow up tomorrow (Call tomorrow for an outpatient follow-up appointment.) BRYNN YOU DO [ACTIVE STAFF] - Follow up tomorrow (Call tomorrow for an outpatient follow-up appointment.)
[2020-03-19] MEDS ORDERED: CLINDAMYCIN HCL 150 MG CAPSULE PO ONE (22:46)
[2020-03-19 23:49] VITALS: BP 126/79
== END 2020-03-19 23:46 | disposition home or self-care (01) ==
LOC: ER 18:06
DX: S62.639B Displaced fracture of distal phalanx of unspecified finger, initial encounter for open fracture (principal); W29.8XXA Contact with other powered hand tools and household machinery, initial encounter; Y93.H2 Activity, gardening and landscaping; Z23 Encounter for immunization; Z88.0 Allergy status to penicillin; Z88.3 Allergy status to other anti-infective agents
CPT/HCPCS: 99284; 90471; 36415; 85025; 80048; 73140; 90715; 12002; J3490